=== PATIENT | female | born 1950 | race Caucasian/White ===

== ENCOUNTER → 2016-06-01 | Outpatient (CLI) | payer OTHER ==
[~2016-06-01] MED LIST: EXCEDRIN1 TAB PO; FLEXERIL10 MG PO; HCTZ 25MG TAB25 MG PO; LORTAB 5/500 501 TAB PO; NAPROXEN EC500 MG PO; NO HOME MEDICATIONS; PHENERGAN 25 TA25 MG PO; SYNTHROID0.1 MG/TAB PO; ZOCOR 20MG20 MG PO
== END ==
LOC: MC.RAD 07:50
DX: Z12.31 Encounter for screening mammogram for malignant neoplasm of breast (principal)

== ENCOUNTER → 2017-10-01 | Outpatient (CLI) | payer MEDICARE, BC | LOC: MC.RAD 07:16 | DX: Z12.31 Encounter for screening mammogram for malignant neoplasm of breast (principal) ==

== ENCOUNTER → 2018-10-24 | Outpatient (CLI) | payer MEDICARE, BC | LOC: MC.RAD 06:59 | DX: Z12.31 Encounter for screening mammogram for malignant neoplasm of breast (principal) ==

== ENCOUNTER 2020-08-16 07:31 | Day surgery (SDC) | payer MEDICARE, BC ==
[~2020-08-16] VITALS: Ht 160 cm; Wt 73.5 kg
[2020-08-16 08:15] VITALS: BP 136/74; PULSE 73; TEMP 98.6
[2020-08-16] MEDS ORDERED: NATURAL MAGNES200 MG PO (08:21)
[2020-08-16] MEDS ORDERED: TOPROL XL 25MG25 MG PO (08:21)
[2020-08-16] MEDS ORDERED: MASON NATURAL2000 IU PO (08:23)
[2020-08-16] MEDS ORDERED: PROBIOTIC FORMU1 CAP PO (08:24)
[2020-08-16 09:35] VITALS: BP 119/48; PULSE 65; TEMP 97.4
--- NOTE | 2020-08-16 09:35 | NUR ---
Pt returned via cart to [facility]. Spouse present, remained in room during procedure. VSS-see flowsheet. Given iced water per request. Denied other needs or complaints. Call light in reach. Pt reclined in chair with warm blankets on.
[2020-08-16 09:50] VITALS: BP 128/74; PULSE 60
[2020-08-16 10:05] VITALS: BP 123/63; PULSE 61
--- NOTE | 2020-08-16 10:15 | NUR ---
Pt tolerated water, denied nausea or pain. VS remain stable, see flowsheet. IV removed, pressure dressing applied. Pt dressed self in personal clothing. Discharge teaching completed, both pt and spouse verbalized understanding. Pt taken via wheelchair to private vehicle for discharge home with spouse driving.
== END 2020-08-16 10:15 | disposition home or self-care (01) ==
LOC: SDCO 07:31
DX: D12.2 Benign neoplasm of ascending colon (principal); I10 Essential (primary) hypertension; E78.5 Hyperlipidemia, unspecified; E03.9 Hypothyroidism, unspecified; Z20.822 Contact with and (suspected) exposure to COVID-19; Z85.048 Personal history of other malignant neoplasm of rectum, rectosigmoid junction, and anus; Z93.3 Colostomy status; Z79.899 Other long term (current) drug therapy; Z88.8 Allergy status to other drugs, medicaments and biological substances; Z79.890 Hormone replacement therapy
CPT/HCPCS: OP; J2704; J3010; J7030